=== PATIENT | male | born 1970 | race Caucasian/White ===

== ENCOUNTER 2019-07-21 08:33 | Emergency (ER) | payer OTHER, BC ==
[2019-07-21 08:38] VITALS: BP 111/72; PULSE 99; TEMP 97.4; BMI 24.4
[2019-07-21] MEDS ORDERED: IBUPROFEN 600 MG TABLET (FP) PO ONE ×2 (08:58→09:14)
--- NOTE | 2019-07-21 09:12 | PDOC ---
History of Present Illness - General Chief Complaint: Back Pain Stated Complaint: LOWER BACK PAIN Time Seen by Provider: 07/21/19 08:44 History Source: Patient Exam Limitations: No Limitations - History of Present Illness Initial Comments: 07/21/19 09:07 Patient is a 49-year-old male with history of hyperthyroidism and left shoulder rotator cuff tears who presents to the ED with complaint of left rib pain that started yesterday. 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 He has pain with deep breaths. He does have Percocet at home for his left shoulder but he has not taken any. He denies any numbness or tingling. He denies any back pain. Past History - Past Medical History Allergies/Adverse Reactions: Allergies Allergy/AdvReac Type Severity Reaction Status Date / Time No Known Drug Allergies Allergy Verified 07/21/19 08:34 SEAFOOD Allergy Hives Uncoded 07/21/19 08:34 Home Medications: Ambulatory Orders NK [No Known Home Medication] 06/01/16 COPD: No Psychiatric Problems: Yes (insomnia, anxiety) - Immunization History Immunization Up to Date: Yes - Psycho Social/Smoking Cessation Hx Smoking Status: Yes Smoking History: Current every day smoker Have you smoked in the past 12 months: Yes Number of Cigarettes Smoked Daily: 20 Information on smoking cessation initiated: No 'Breaking Loose' booklet given: 10/20/15 Hx Alcohol Use: No Drug/Substance Use Hx: No Substance Use Type: None Hx Substance Use Treatment: No Review of Systems - Review of Systems Comments:: 07/21/19 09:09 - Review of Systems Able to Perform ROS?: Yes Constitutional: No: Fever, Chills, Loss of Appetite, Night Sweats, Weakness HEENTM: No: Eye Pain, Vision changes, Ear Pain, Throat Pain, Throat Swelling, Mouth Pain, Difficulty Swallowing Respiratory: No: Cough, Shortness of Breath, Wheezing, Sputum Production Cardiac (ROS): No: Chest Pain, Chest Tightness, Palpitations, Irregular Heart Beat, Edema ABD/GI: No: Nausea, Vomiting, Abdominal Pain, Diarrhea : No Dysuria, No Hematuria, No Frequency, No Urgency, No Vaginal Discharge/ Pain, No Penile Discharge/Pain Musculoskeletal: No: Muscle Pain, Back Pain, Joint Pain, Muscle Weakness, Neck Pain; Positive posterolateral rib pain Integumentary: No: Lesions, Rash Neurological: No: Headache, Numbness, Tingling, Weakness, Speech Difficulties *Physical Exam - Vital Signs Last Vital Signs Temp Pulse Resp BP Pulse Ox 97.4 F L 99 H 18 111/72 93 L 07/21/19 08:35 07/21/19 08:35 07/21/19 08:35 07/21/19 08:35 07/21/19 08:35 - Physical Exam 07/21/19 09:11 - Physical Exam General Appearance: Nourished, Appropriately Dressed, No Distress Neck: Supple, No Lymphadenopathy (R), No Lymphadenopathy (L), No Rigidity, No Decreased range of motion Respiratory/Chest: Lungs Clear, Normal Breath Sounds. No Respiratory Distress, No Accessory Muscle Use Cardiovascular: Regular Rhythm, Regular Rate, S1, S2 Gastrointestinal/Abdominal: Normal Bowel Sounds, Soft. Non-tender, No Guarding , No Rebound, No Rigidity Musculoskeletal: Normal Inspection. No Decreased Range of Motion; Positive L posterolateral rib tenderness to palpation, no flail chest, Pain with inspiration to the left posterior chest. Extremity: Normal Capillary Refill, Normal Inspection Integumentary: Normal Color, Dry. 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 Patient likely has rib contusions. He has been made aware that he can continue to take Motrin as needed for inflammation and can take his at home Percocet for pain. He should follow-up with his primary doctor within 1 to 2 days for repeat evaluation. He understands and agrees with this treatment and plan and the patient is stable for discharge. Discharge - Discharge Information Problems reviewed: Yes Clinical Impression/Diagnosis: Contusion of rib on left side Qualifiers: Encounter type: initial encounter Qualified Code(s): S20.212A - Contusion of left front wall of thorax, initial encounter Condition: Stable Disposition: HOME - Follow up/Referral Referrals: Tacos Chew MD [Primary Care Provider] - - Patient Discharge Instructions Patient Printed Discharge Instructions: DI for Rib Contusion Additional Instructions: You can take Motrin or your at home Percocet for rib pain. Be sure to continue to take deep breaths to help keep your lungs properly inflated. Follow-up with your primary doctor within 1 to 2 days for repeat evaluation. - Post Discharge Activity
== END 2019-07-21 09:50 | disposition home or self-care (01) ==
LOC: JERFT 08:33
DX: S20.212A Contusion of left front wall of thorax, initial encounter (principal); E07.9 Disorder of thyroid, unspecified; F17.210 Nicotine dependence, cigarettes, uncomplicated; F41.9 Anxiety disorder, unspecified
CPT/HCPCS: 71101-TC-LT-FY; 99282-25